=== PATIENT | male | born 1990 | race Caucasian/White ===

== ENCOUNTER 2022-08-19 18:21 | Emergency (ER) | payer OTHER, SELFPAY ==
--- NOTE | 2022-08-19 18:37 | ED_ITS ---
HPI - Extremity Problem General Chief complaint: General Medical Stated complaint: L Leg Pain Time Seen by Provider: 08/19/22 18:34 Source: patient and EMS Mode of arrival: EMS Limitations: no limitations History of Present Illness HPI Narrative: Patient history of substance abuse apparently overdosed on fentanyl about 2 weeks ago and fell was on the ground for 2 days seen in the hospital stay for 10 days diagnosed with rhabdomyolysis underwent dialysis and blood transfusion left AMA 4 days ago comes here for continuing pain in the left leg for which he was prescribed gabapentin Related Data Previous Rx's Medication Instructions Recorded folic acid 1 mg tablet 1 mg PO DAILY #30 tabs 08/19/22 thiamine HCl (vitamin B1) 100 mg 50 mg PO DAILY #30 tabs 08/19/22 tablet tramadol 50 mg tablet 50 mg PO Q6H PRN pain #20 tabs 08/19/22 vitamin B complex (B 1 tab PO DAILY #30 tabs 08/19/22 Complex-Vitamin B12 tablet) Allergies Allergy/AdvReac Type Severity Reaction Status Date / Time No Known Allergies Allergy Verified 08/19/22 18:50 Review of Systems 2 Review of Systems: Yes all other systems are reviewed and are negative [facility] Social History Social History Alcohol intake: never Use of substances other than those prescribed or required for medical reasons: No Advance Directives: No Advance Directives Information Provided: No Physical Exam Vital Signs: Vital Signs: Last Vital Signs Temp 97.8 F 08/19/22 22:00 Pulse 98 08/19/22 22:00 Resp 12 08/19/22 22:00 BP 138/96 H 08/19/22 22:00 Pulse Ox 100 08/19/22 22:00 O2 Del Method 08/19/22 22:00 BMI result Body Mass Index 18.1 Appearance: Alert. Oriented X3. No acute distress. Eyes: PERRLA, No Nystagmus ENT: Pharynx normal. Oral Mucosa moist Neck: Normal inspection. Neck supple. CVS: Normal heart rate and rhythm. Pulses normal. Respiratory: No respiratory distress. Equal air entry bilateral, no wheezing/rales/rhonchi Abdomen: Soft and nontender. Bowel sounds are present, no mass palpable, no CVA tenderness Skin: Skin warm and dry. Normal skin color. Normal skin turgor. Extremities: No lower extremity edema. No calf tenderness low muscle mass, dif fuse tenderness to touch left lower extremities deep tender reflexes are normal Neuro: Oriented X 3. No motor deficit. No sensory deficit.No cerebellar signs , cranial nerves II-XII intact MDM - Extremity (Nontraumatic) MDM Narrative Medical decision making narrative: Patient with macrocytic anemia asymptomatic no shortness of breath B12 folate were ordered Lab Data Attestation: I reviewed the patient's lab results. Result diagrams: 08/19/22 19:28 08/19/22 19: Labs: Lab Results 08/19/22 08/19/22 08/19/22 Range/Units 19:28 19:28 19: WBC 6.9 (4.8-10.8) X10*3/uL RBC 2.25 L (4.60-5.80) X10*6/uL Hgb 7.3 L (14.0-18.0) g/dl Hct 21.9 L (42.0-52.0) % MCV 97.3 (80.0-98.0) fL MCH 32.4 (27.0-33.0) pg MCHC 33.3 (31.0-36.0) g/dl RDW 14.3 (11.0-16.0) % Plt Count 326 (160-400) X10*3/uL MPV 9.2 L (9.4-12.4) fL Immature Gran % (Auto) 1.8 H (0.0-0.4) % Neut % (Auto) 51.5 (45-73) % Lymph % (Auto) 32.7 (20-40) % [place] % (Auto) 10.1 (2-11) % Eos % (Auto) 2.9 (0-4) % Baso % (Auto) 1.0 (0-2) % Lymph # (Auto) 2.2 (1.2-4.9) X10*3/uL [place] # (Auto) 0.7 (0.1-1.2) X10*3/uL Eos # (Auto) 0.2 (0.0-0.4) X10*3/uL Baso # (Auto) 0.1 (0.0-0.2) X10*3/uL Abs Immat Gran (auto) 0.12 H (0.00-0.03) X10*3/uL Absolute Neuts (auto) 3.5 (2.0-8.3) x10*3/uL Absolute Nucleated RBC 0.000 (0.0-0.012) X10*3/uL Nucleated RBC % (auto) 0.0 (0.0-0.2) /100WBC ESR 13 (0-15) MM/HR Sodium 142 (135-145) mmol/L Potassium 4.4 (3.3-5.1) mmol/L Chloride 105 (96-108) mmol/L Carbon Dioxide 27 (22-29) mmol/L Anion Gap 14 (12-20) BUN 22 H (9-16) mg/dL Creatinine 1.22 (0.5-1.4) mg/dL Estim Creat Clear Calc 72.1 Estimated GFR > 60 Random Glucose 107 (60-115) mg/dL Calcium 9.0 (8.4-10.2) mg/dL Iron 105 (45-160) mcg/dL TIBC 346 (228-428) mcg/dL % Saturation 30 (15-50) % Unsat Iron Binding 241 ug/dL Total Bilirubin < 0.2 (0.0-1.0) mg/dL AST 35 (5-37) U/L ALT 65 H (0-40) U/L Alkaline Phosphatase 67 (39-117) U/L Total Creatine Kinase 111 (38-174) U/L C-Reactive Protein 0.20 (< or = 0.50) mg/dL Total Protein 6.9 (6.5-8.0) g/dL Albumin 4.0 (3.5-5.0) g/dL Discharge Plan Discharge Clinical Impression: Neuropathy Patient Disposition: Home, Self-Care Instructions: Peripheral Neuropathy (ED) Additional Instructions: Continue gabapentin Tramadol for increased pain Follow-up with neurologist Prescriptions: New tramadol 50 mg tablet 50 mg PO Q6H PRN (Reason: pain) Qty: 20 0RF folic acid 1 mg tablet 1 mg PO DAILY Qty: 30 0RF thiamine HCl (vitamin B1) 100 mg tablet 50 mg PO DAILY Qty: 30 0RF vitamin B complex [B Complex-Vitamin B12] Tablet 1 tab PO DAILY Qty: 30 0RF Referrals: Armen Lopez MD [Physician] - 2 weeks Interventions: ED Discharge Assessment Last Done: 08/19/22 22:32 Discharge Date/Time: 08/19/22 22:33
[2022-08-19 19:12] VITALS: BP 131/78; PULSE 99; RESP 18; TEMP 36.9; O2SAT 100; BMI 18.1
[2022-08-19 19:14] VITALS: BP 148/96; PULSE 97; RESP 20; TEMP 36.9; O2SAT 100
[2022-08-19] MEDS: 0.9 % Sodium Chloride 1,000 ML 999 ML IV (19:17)
[2022-08-19 19:31] LABS: MANUAL DIFF FLAG NO
[2022-08-19 19:33] LABS: Basophils Absolute Auto 0.1 X10*3/uL (0.0-0.2); Eosinophils Absolute Auto 0.2 X10*3/uL (0.0-0.4); Eosinophils Percent Auto 2.9 % (0-4); Hematocrit 21.9 % (42.0-52.0); Hemoglobin 7.3 g/dl (14.0-18.0); Imm Gran Abs Auto 0.12 X10*3/uL (0.00-0.03); Imm Gran Pct Auto 1.8 % (0.0-0.4); Lymphocytes Absolute Auto 2.2 X10*3/uL (1.2-4.9); Lymphocytes Percent Auto 32.7 % (20-40); Mean Corpuscular HGB Conc 33.3 g/dl (31.0-36.0); Mean Corpuscular Hemoglobin 32.4 pg (27.0-33.0); Mean Corpuscular Volume 97.3 fL (80.0-98.0); Mean Platelet Volume 9.2 fL (9.4-12.4); Monocytes Absolute Auto 0.7 X10*3/uL (0.1-1.2); Monocytes Percent Auto 10.1 % (2-11); Neutrophils Absolute Auto 3.5 x10*3/uL (2.0-8.3); Neutrophils Percent Auto 51.5 % (45-73); Platelet Count 326 X10*3/uL (160-400); Red Blood Count 2.25 X10*6/uL (4.60-5.80); Red Cell Distribution Width 14.3 % (11.0-16.0); White Blood Count 6.9 X10*3/uL (4.8-10.8)
[2022-08-19 19:55] LABS: Alanine Aminotransferase 65 U/L (0-40); Alkaline Phosphatase 67 U/L (39-117); Anion Gap 14 (12-20); Aspartate Amino Transferase 35 U/L (5-37); Bilirubin Total < 0.2 mg/dL (0.0-1.0); Blood Urea Nitrogen 22 mg/dL (9-16); Carbon Dioxide 27 mmol/L (22-29); Chloride 105 mmol/L (96-108); Creatinine Clr Calc Pharmacy 72.1; Estimated Glomerular Filt Rate > 60; Glucose Random 107 mg/dL (60-115); Potassium 4.4 mmol/L (3.3-5.1); Sodium 142 mmol/L (135-145); Total Protein 6.9 g/dL (6.5-8.0)
[2022-08-19 20:09] VITALS: BP 136/81; PULSE 99; RESP 16; O2SAT 100
[2022-08-19 20:37] LABS: Iron 105 mcg/dL (45-160); Percent Iron Saturation 30 % (15-50); Total Iron Binding Capacity 346 mcg/dL (228-428); Unsaturated Iron Binding 241 ug/dL
[2022-08-19] MEDS: Ketorolac Tromethamine 30 MG/ML VIAL IVPUSH (20:40)
[2022-08-19] MEDS: ondansetron HCL 4 MG/2 ML VIAL IVPUSH (20:40)
[2022-08-19] MEDS: Morphine Sulfate 4 MG/ML CARTRIDGE IVPUSH (20:40)
[2022-08-19 20:51] VITALS: O2SAT 97
[2022-08-19 21:05] LABS: Erythrocyte Sedimentation Rate 13 MM/HR (0-15)
[2022-08-19 22:00] VITALS: BP 138/96; PULSE 98; RESP 12; TEMP 36.6; O2SAT 100
--- NOTE | 2022-08-19 22:32 | PC.NURSE ---
Discharge instructions provided to. Pt verbalizes understanding.
[2022-08-20 06:00] LABS: Folate 17.8 ng/mL (> or = 4.0); Vitamin B12 503 pg/mL (200-900)
== END 2022-08-19 22:33 | disposition home or self-care (01) ==
PROVIDERS: Emergency Provider Internal Medicine
DX: G62.9 Polyneuropathy, unspecified (principal); M79.605 Pain in left leg; D50.9 Iron deficiency anemia, unspecified; F19.10 Other psychoactive substance abuse, uncomplicated
CPT/HCPCS: 36415; 80053; 82550; 82607; 82746; 83540; 85025; 85652; 86140; 96361; 96374; 96375; 99284; J1885; J2270; J2405